=== PATIENT | male | born 1940 | race Caucasian/White ===

== ENCOUNTER 2019-10-16 12:01 | Emergency (ER) | payer MEDICARE, BC ==
[2019-10-16] MEDS ORDERED: Sodium Chloride 0.9% 10 ML Syringe FLUSH PRN ×2 (12:19→12:47)
[2019-10-16] MEDS ORDERED: Sodium Chloride 0.9% 1,000 ML IV ONE (12:19)
--- NOTE | 2019-10-16 12:29 | EDM.PDOC ---
ED HPI GENERAL MEDICAL PROBLEM - General Stated Complaint: DIZZY, VISION ISSUES Time Seen by Provider: 10/16/19 12:12 Source of Information: Reports: Patient, Family History Limitations: Reports: Physical Impairment - History of Present Illness INITIAL COMMENTS - FREE TEXT/NARRATIVE: Cali is a 79 year old male, presents to the ED today with with sudden onset of unsteady gait, trouble dialing phone and unsteady gait that started at 0900 this morning. Patient thought he just wasn't feeling well initially and had issues with ambulation. He was going to go out to eat with family but then decided he should stay home, they left some phones by patient and when he tried to call them he had a hard time with coordination while dialing. Patient denies any visual loss, no dysarthria. Patient denies any headache. Patient denies any chest pain. Patient denies any hx of stroke or heart attack. Patient is not on any blood thinners, he denies any recent trauma, patient did have spinal surgery in April and has been regaining strength in his right arm since that time, however, prior to today, patient has not had any coordination issues. Patient normally ambulates unassisted, now unable to ambulate secondary to unsteadiness. Onset: Today, Sudden Duration: Hour(s): (0900) - Related Data Allergies Allergy/AdvReac Type Severity Reaction Status Date / Time No Known Allergies Allergy Verified 10/16/19 12:29 Home Meds: Home Meds Aspirin 81 mg PO DAILY 02/28/15 [History] Multivitamin [Multi-Vitamin Daily] 1 tab PO DAILY 02/28/15 [History] Pravastatin Sodium [Pravachol] 40 mg PO BEDTIME 02/28/15 [History] amLODIPine [Norvasc] 10 mg PO DAILY 02/28/15 [History] lamoTRIgine [LaMICtal] 200 mg PO BID 02/28/15 [History] Losartan [Cozaar] 100 mg PO DAILY 02/11/18 [History] Magnesium Glycinate [Mag Glycinate] 100 mg PO DAILY 10/16/19 [History] Vit C/E/Zn/Coppr/Lutein/Zeaxan [Preservision Areds 2 Softgel] 1 tab PO BID 10/16/19 [History] Vitamin B Complex [B Complex] 1 tab PO DAILY 10/16/19 [History] Past Medical History HEENT History: Reports: Impaired Vision Cardiovascular History: Reports: High Cholesterol, Hypertension Gastrointestinal History: Reports: None Musculoskeletal History: Reports: Fracture Neurological History: Reports: Seizure, Other (See Below) Other Neuro History: last seizure in 1999 - Infectious Disease History Infectious Disease History: Reports: Chicken Pox - Past Surgical History Head Surgeries/Procedures: Reports: Other (See Below) HEENT Surgical History: Reports: None Cardiovascular Surgical History: Reports: None GI Surgical History: Reports: Colonoscopy, EGD Neurological Surgical History: Reports: None Musculoskeletal Surgical History: Reports: None Dermatological Surgical History: Reports: None Social & Family History - Family History Family Medical History: Noncontributory - Caffeine Use Caffeine Use: Reports: Coffee ED ROS GENERAL - Review of Systems Review Of Systems: Comprehensive ROS is negative, except as noted in HPI. ED EXAM, NEURO - Physical Exam Exam: See Below Exam Limited By: Physical Impairment General Appearance: Alert, Mild Distress Eye Exam: Bilateral Eye: EOMI, PERRL Ears: Normal External Exam Nose: Normal Inspection Throat/Mouth: Normal Inspection, Normal Oropharynx Head Exam: Atraumatic Neck: Normal Inspection, Supple Respiratory/Chest: No Respiratory Distress, Lungs Clear Cardiovascular: Normal Peripheral Pulses, Regular Rate, Rhythm, No Murmur GI/Abdominal: Normal Bowel Sounds, Soft, Non-Tender Neurological: Alert, Abnormal Gait, Ataxia, Abnormal Finger to Nose, Abnormal Sensation, Other (ataxia with ambulation, difficulty with finger to nose, right, decreased sensation right upper and lower) Back Exam: Normal Inspection Extremities: Normal Inspection, No Pedal Edema, Normal Capillary Refill Psychiatric: Anxious Skin Exam: Warm, Dry, Intact EKG INTERPRETATION EKG Date: 10/16/19 Time: 12:15 Rhythm: NSR Rate (Beats/Min): 91 [place]: Normal P-Wave: Present QRS: Normal ST-T: Normal QT: Normal Course - Vital Signs Last Recorded V/S: Last Vital Signs Temp 36.5 C 10/16/19 13:25 Pulse 74 10/16/19 13:25 Resp 16 10/16/19 13:25 BP 143/70 H 10/16/19 13:25 Pulse Ox 97 10/16/19 13:25 Cali is a 79 year old male, hx of HTN, hyperlipidemia, seizures (not for years), presents to the ED today with concerns for CVA. Please refer to HPI and focused exam. Patient declared code stroke. I am concerned about posterior stroke. I assisted patient up from wheelchair prior to getting into ED bed, he has profound ataxia. Patient has poor coordination of finger to nose with right hand. He has had some residual weakness/numbness to right arm from his spinal surgery in April however has not had any issues with regard to coordination and strength. Patient on arrival here along with ataxia has right arm drift and decreased sensation to right upper and lower extremity when compared to left. Patient does not have persistent nystagmus, he dose have bilateral positive impulse test. CT of head and CTA obtained emergently, EKG sinus rhythm with prolonged MT interval. Patient does have hx of craniectomy due to his seizure hx. While patient in CT I called [facility] and spoke with stroke neurologist, Dr. Jara, after discussing patient, patient is in extended window for TPA and given hx there is no contraindications. CT head with no acute bleed. 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 After much discussion of risks/benefits of TPA vs. no treatment and just transfer both patient and his agreeable to TPA administration. NIH of 4. 1340-TPA administered per RN. No change in patient neuro status prior to administration. Patient discharged via air care in stable condition with stable vital signs. - Orders/Labs/Meds Orders: Active Orders 24 hr Category Date Time Status EKG Documentation Completion [RC] ASDIRECTED Care 10/16/19 12:16 Active Peripheral IV Care [RC] . DIRECTED Care 10/16/19 12:19 Active Ang Neck [CT] Stat Exams 10/16/19 12:17 Taken Peripheral IV Insertion Adult [OM.PC] Routine Oth 10/16/19 12:19 Ordered EKG 12 Lead [EK] Stat Ther 10/16/19 12:16 Ordered Labs: Laboratory Tests 10/16/19 10/16/19 10/16/19 Range/Units 12:28 12:28 12:28 WBC 9.5 (4.5-11.0) K/uL RBC 4.11 L (4.30-5.90) M/uL Hgb 13.2 (12.0-15.0) g/dL Hct 40.2 (40.0-54.0) % MCV 98 (80-98) fL MCH 32 H (27-31) pg MCHC 33 (32-36) % Plt Count 363 (150-400) K/uL Neut % (Auto) 80 H (36-66) % Lymph % (Auto) 10 L (24-44) % Marion % (Auto) 9 H (2-6) % Eos % (Auto) 1 L (2-4) % Baso % (Auto) 0 (0-1) % PT (9.5-12.0) sec INR (0.80-1.20) Sodium 138 L (140-148) mmol/L Potassium 4.2 (3.6-5.2) mmol/L Chloride 104 (100-108) mmol/L Carbon Dioxide 25 (21-32) mmol/L Anion Gap 13.2 (5.0-14.0) mmol/L BUN 19 H (7-18) mg/dL Creatinine 1.1 (0.8-1.3) mg/dL Est Cr Clr Drug Dosing 56.22 mL/min Estimated GFR (MDRD) > 60 (>60) Glucose 112 H (74-106) mg/dL Lactic Acid 1.4 (0.4-2.0) mmol/L Calcium 9.2 (8.5-10.1) mg/dL Total Bilirubin 0.5 (0.2-1.0) mg/dL AST 21 (15-37) U/L ALT 28 (12-78) U/L Alkaline Phosphatase 77 (46-116) U/L Troponin I < 0.017 (0.000-0.056) ng/mL C-Reactive Protein (0.0-0.3) mg/dL Total Protein 7.6 (6.4-8.2) g/dL Albumin 3.9 (3.4-5.0) g/dL Globulin 3.7 H (2.3-3.5) g/dL Albumin/Globulin Ratio 1.1 L (1.2-2.2) 10/16/19 10/16/19 Range/Units 12:28 12:28 WBC (4.5-11.0) K/uL RBC (4.30-5.90) M/uL Hgb (12.0-15.0) g/dL Hct (40.0-54.0) % MCV (80-98) fL MCH (27-31) pg MCHC (32-36) % Plt Count (150-400) K/uL Neut % (Auto) (36-66) % Lymph % (Auto) (24-44) % Marion % (Auto) (2-6) % Eos % (Auto) (2-4) % Baso % (Auto) (0-1) % PT 10.0 (9.5-12.0) sec INR 0.92 (0.80-1.20) Sodium (140-148) mmol/L Potassium (3.6-5.2) mmol/L Chloride (100-108) mmol/L Carbon Dioxide (21-32) mmol/L Anion Gap (5.0-14.0) mmol/L BUN (7-18) mg/dL Creatinine (0.8-1.3) mg/dL Est Cr Clr Drug Dosing mL/min Estimated GFR (MDRD) (>60) Glucose (74-106) mg/dL Lactic Acid (0.4-2.0) mmol/L Calcium (8.5-10.1) mg/dL Total Bilirubin (0.2-1.0) mg/dL AST (15-37) U/L ALT (12-78) U/L Alkaline Phosphatase (46-116) U/L Troponin I (0.000-0.056) ng/mL C-Reactive Protein 0.00 (0.0-0.3) mg/dL Total Protein (6.4-8.2) g/dL Albumin (3.4-5.0) g/dL Globulin (2.3-3.5) g/dL Albumin/Globulin Ratio (1.2-2.2) Meds: Medications Discontinued Medications Generic Name Dose Route Start Last Admin Trade Name Freq PRN Reason Stop Dose Admin Alteplase, Recombinant 7.5 mg 10/16/19 14:00 10/16/19 13:29 Activase IVPUSH 10/16/19 14:01 7.5 mg ONETIME ONE Administration Sodium Chloride 1,000 mls @ 999 mls/hr 10/16/19 12:19 10/16/19 12:54 Normal Saline IV 10/16/19 13:19 999 mls/hr .BOLUS ONE Administration Sodium Chloride 70 mls @ 3 mls/sec 10/16/19 12:47 10/16/19 12:49 Normal Saline IV 10/16/19 12:48 3 mls/sec ASDIRECTED ONE Administration Alteplase, Recombinant 68 mg/ 68 mls @ 68 mls/hr 10/16/19 14:00 10/16/19 13:41 Premix IV 10/16/19 14:59 68 mls/hr ONETIME ONE Administration Iopamidol 100 ml 10/16/19 13:00 10/16/19 12:48 Isovue-370 (76%) IV 100 ml . DIRECTED EVELYN Administration Sodium Chloride 10 ml 10/16/19 12:19 10/16/19 12:54 Saline Flush FLUSH 10 ml ASDIRECTED PRN Administration Keep Vein Open Sodium Chloride 10 ml 10/16/19 12:47 10/16/19 12:48 Saline Flush FLUSH 10 ml . DIRECTED PRN Administration [id number] EXAM Departure - Departure Time of Disposition: 14:20 Disposition: DC/Tfer to Acute Hospital 02 Condition: Serious Clinical Impression: Ataxia, Coordination abnormal, Abnormal sensation of upper extremity, Abnormal sensation of lower extremity - Discharge Information Referrals: PCP,None [Primary Care Provider] - Forms: ED Department Discharge Sepsis Event Note (ED) - Focused Exam Vital Signs: Vital Signs Temp Pulse Resp BP Pulse Ox 10/16/19 13:25 36.5 C 74 16 143/70 H 97 10/16/19 12:53 75 18 134/68 96 10/16/19 12:29 36.5 C 95 18 155/78 H 96 - My Orders Last 24 Hours: My Active Orders 10/16/19 12:16 EKG Documentation Completion [RC] ASDIRECTED EKG 12 Lead [EK] Stat 10/16/19 12:17 Ang Neck [CT] Stat 10/16/19 12:19 Peripheral IV Care [RC] . DIRECTED Peripheral IV Insertion Adult [OM.PC] Routine - Assessment/Plan Last 24 Hours: My Active Orders 10/16/19 12:16 EKG Documentation Completion [RC] ASDIRECTED EKG 12 Lead [EK] Stat 10/16/19 12:17 Ang Neck [CT] Stat 10/16/19 12:19 Peripheral IV Care [RC] . DIRECTED Peripheral IV Insertion Adult [OM.PC] Routine
[2019-10-16] MEDS ORDERED: Iopamidol 755 Mg/ML 100 ML Bottle IV SCH (13:00)
--- NOTE | 2019-10-16 13:10 | CRLCT ---
INDICATION: Unsteadiness with right arm drift. Possible CVA. COMPARISON: None available. TECHNIQUE: CT examination of the head was performed with 3 mm thick axial sections without intravenous contrast. Images were obtained from the vertex of the skull through the skull base, and I examined the images with the brain and bone windows. Please note that all CT scans at this facility use dose modulation, iterative reconstruction, and/or weight-based dosing when appropriate to reduce radiation dose to as low as reasonably achievable. FINDINGS: : There is a large area encephalomalacia involving the mid and anterior portion of the left temporal lobe, underlying a large mature left temporal craniotomy. This is associated with moderate ex vacuo dilatation of the left temporal horn and left occipital horn. There is prominent atrophy of the left cerebellar hemisphere, which may be related to the left temporal encephalomalacia change. The brain is elsewhere normal in appearance for the patient`s age on today`s study, with no sign of mass lesion, mass effect, hemorrhage, or edema. The rest of the ventricles and sulci are mildly dilated, representing mild, age-appropriate atrophy. The visualized portions of the orbits are normal in appearance. The visualized portions of the paranasal sinuses and mastoids are clear. The osseous structures are normal in their appearance with no sign of abnormality in the skull base or calvarium. IMPRESSION: No sign of acute injury to the brain. Prominent encephalomalacic change involving the entire left anterior and mid temporal lobe underlying a large mature right temporal craniotomy. Prominent atrophy of the left cerebellar hemisphere, possibly related to the encephalomalacia of the left temporal lobe described above. Mild, age-appropriate atrophy. Please note that all CT scans at this facility use dose modulation, iterative reconstruction, and/or weight-based dosing when appropriate to reduce radiation dose to as low as reasonably achievable. Dictated by Altaf Monson MD @ Oct 16 2019 1:03PM Signed by Dr. Altaf Monson @ Oct 16 2019 1:08PM
--- NOTE | 2019-10-16 13:18 | CRLCT ---
History: Right arm drift. Unsteadiness. Possible CVA. Comparison: Noncontrast CT of the head from today. Normal appearance of the vessels of the [place] despite the large area of encephalomalacia involving the anterior and mid left temporal lobe. Widely patent bilateral anterior, middle, and posterior cerebral arteries. Widely patent anterior communicating artery. 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 Widely patent basilar artery with widely patent dominant left vertebral artery. The right vertebral artery is diminutive and no definite flow is seen in the most superior portion of the left vertebral artery beyond the origin of the left PICA near the junction with the basilar artery. No sign of intracranial aneurysm. Impression: No large vessel occlusions of the intracranial circulation. Anterior circulation unremarkable. Widely patent basilar and dominant left vertebral artery. Diminutive right vertebral artery may be occluded near the junction with the basilar artery. Dictated by Altaf Monson MD @ 10/16/2019 1:17:16 PM Prelim Report By Dr. Altaf Monson @ 10/16/2019 1:17:19 PM ADDENDUM The findings were called and faxed to Dr. Asha Ocasio on 10/16/2019 at 1:19pm. Prelim Report By Dr. Altaf Monson @ 10/16/2019 1:17:19 PM ADDENDUM TECHNIQUE: Helical CT acquisition of the head and neck was performed after intravenous contrast administration with bolus timing. Sagittal and coronal reformats were obtained and interpreted. IMPRESSION: Agree with findings above. No proximal intracranial large vessel occlusion and patent cervical vasculature. Please note that all CT scans at this facility use dose modulation, iterative reconstruction, and/or weight-based dosing when appropriate to reduce radiation dose to as low as reasonably achievable. Dictated by: Tina Doyle MD @ 10/16/2019 13:59:00 (Electronically Signed)
[2019-10-16 13:26] VITALS: BP 143/70; PULSE 74
[2019-10-16] MEDS ORDERED: ALTEPLASE IV ONE (14:00)
--- NOTE | 2019-10-18 11:05 | CRLCT ---
Final Report: History: Right arm drift. Unsteadiness. Possible CVA. Comparison: Noncontrast CT of the head from today. Normal appearance of the vessels of the [place] despite the large area of encephalomalacia involving the anterior and mid left temporal lobe. Widely patent bilateral anterior, middle, and posterior cerebral arteries. Widely patent anterior communicating artery. Widely patent large caliber left posterior communicating artery with associated hypoplasia of the P1 segments of the left P[employer] SE[employer]ING MACHINE OPERATOR, a common variant of normal. Widely patent basilar artery with widely patent dominant left vertebral artery. The right vertebral artery is diminutive and no definite flow is seen in the most superior portion of the left vertebral artery beyond the origin of the left PICA near the junction with the basilar artery. No sign of intracranial aneurysm. Impression: No large vessel occlusions of the intracranial circulation. Anterior circulation unremarkable. Widely patent basilar and dominant left vertebral artery. Diminutive right vertebral artery may be occluded near the junction with the basilar artery. Dictated by Altaf Monson MD @ 10/16/2019 1:17:16 PM Prelim Report By Dr. Altaf Monson @ 10/16/2019 1:17:19 PM ADDENDUM The findings were called and faxed to Dr. Asha Ocasio on 10/16/2019 at 1:19pm. Prelim Report By Dr. Altaf Monson @ 10/16/2019 1:17:19 PM ADDENDUM TECHNIQUE: Helical CT acquisition of the head and neck was performed after intravenous contrast administration with bolus timing. Sagittal and coronal reformats were obtained and interpreted. IMPRESSION: Agree with findings above. No proximal intracranial large vessel occlusion and patent cervical vasculature. Please note that all CT scans at this facility use dose modulation, iterative reconstruction, and/or weight-based dosing when appropriate to reduce radiation dose to as low as reasonably achievable. Dictated by: Tina Doyle MD @ 10/16/2019 13:59:00 Signed by: Tina Doyle MD @10/16/2019 1:59:00 PM (Electronic Signature) [facility]
== END 2019-10-16 14:04 ==
LOC: JP.ED 12:01
DX: R27.0 Ataxia, unspecified (principal); R20.0 Anesthesia of skin; E78.00 Pure hypercholesterolemia, unspecified; I10 Essential (primary) hypertension; R56.9 Unspecified convulsions; Z79.82 Long term (current) use of aspirin; Z79.899 Other long term (current) drug therapy
CPT/HCPCS: 36415; 37195; 70450; 70496; 70498; 80053; 83605; 84484; 85025; 85610; 86140; 93005; 93010; 96360; 99285; J2997; J7030; J7050; Q9967

== ENCOUNTER 2019-11-22 12:00 | Emergency (ER) | payer MEDICARE, BC ==
--- NOTE | 2019-11-22 12:29 | EDM.PDOC ---
ED HPI GENERAL MEDICAL PROBLEM - General Chief Complaint: General Stated Complaint: DIZZINESS Time Seen by Provider: 11/22/19 12:33 Source of Information: Reports: Patient, Significant Other History Limitations: Reports: No Limitations - History of Present Illness INITIAL COMMENTS - FREE TEXT/NARRATIVE: Has previously been diagnosed with ataxia and abnormal coordination. Presents today with dizziness. States he was not dizzy when he woke this morning and fairly suddenly at 11:00 he became dizzy and unable to walk. Denies room spinning. Denies tinnitus. He has chronic tingling in his extremities after having neck surgery at the [facility] this past year. He was told by neurosurgeon if he would have tingling in his extremities. The patient has had a previous episode of acute dizziness such as today. He was not diagnosed with any stroke at that time.. He was not diagnosed with any stroke at that time. He was told by neurosurgeon that he would have tingling in his extremities. Onset Date: 11/22/19 Onset Time: 11:00 Duration: Waxing/Waning Severity: Severe - Related Data Allergies Allergy/AdvReac Type Severity Reaction Status Date / Time No Known Allergies Allergy Verified 10/16/19 12:29 Home Meds: Home Meds Aspirin 81 mg PO DAILY 02/28/15 [History] Multivitamin [Multi-Vitamin Daily] 1 tab PO DAILY 02/28/15 [History] Pravastatin Sodium [Pravachol] 40 mg PO BEDTIME 02/28/15 [History] amLODIPine [Norvasc] 10 mg PO DAILY 02/28/15 [History] lamoTRIgine [LaMICtal] 200 mg PO BID 02/28/15 [History] Losartan [Cozaar] 100 mg PO DAILY 02/11/18 [History] Magnesium Glycinate [Mag Glycinate] 100 mg PO DAILY 10/16/19 [History] Vit C/E/Zn/Coppr/Lutein/Zeaxan [Preservision Areds 2 Softgel] 1 tab PO BID 10/16/19 [History] Vitamin B Complex [B Complex] 1 tab PO DAILY 10/16/19 [History] Past Medical History HEENT History: Reports: Impaired Vision Cardiovascular History: Reports: High Cholesterol, Hypertension Gastrointestinal History: Reports: None Musculoskeletal History: Reports: Fracture Neurological History: Reports: Seizure, Other (See Below) Other Neuro History: last seizure in 1999 - Infectious Disease History Infectious Disease History: Reports: Chicken Pox, Measles, Mumps - Past Surgical History Head Surgeries/Procedures: Reports: Other (See Below) HEENT Surgical History: Reports: None Cardiovascular Surgical History: Reports: None GI Surgical History: Reports: Colonoscopy, EGD Neurological Surgical History: Reports: None Musculoskeletal Surgical History: Reports: None Dermatological Surgical History: Reports: None Social & Family History - Family History Family Medical History: Noncontributory - Tobacco Use Smoking Status *Q: Never Smoker - Caffeine Use Caffeine Use: Reports: Coffee, Soda - Recreational Drug Use Recreational Drug Use: No ED ROS GENERAL - Review of Systems Review Of Systems: See Below Constitutional: Denies: Fever, Weakness HEENT: Reports: No Symptoms, Vertigo Respiratory: Reports: No Symptoms Cardiovascular: Reports: No Symptoms Endocrine: Reports: No Symptoms GI/Abdominal: Reports: No Symptoms Musculoskeletal: Reports: Neck Pain Skin: Reports: No Symptoms Neurological: Reports: Paresthesia (occurs daily since neck surgery), Difficulty Walking. Denies: Headache, Seizure, Syncope, Trouble Speaking Psychiatric: Reports: No Symptoms ED EXAM, GENERAL - Physical Exam Exam: See Below Exam Limited By: No Limitations General Appearance: Alert, WD/WN Eye Exam: Bilateral Eye: EOMI, PERRL Ears: Normal External Exam Nose: Normal Inspection Throat/Mouth: Normal Inspection Head: Atraumatic Neck: Limited Range of Motion, Other (well healed scar posterior midline) Respiratory/Chest: No Respiratory Distress Cardiovascular: Normal Peripheral Pulses GI/Abdominal: Normal Bowel Sounds Extremities: Normal Inspection Neurological: Alert, Oriented, Normal Cognition, Normal Reflexes Psychiatric: Normal Affect, Normal Mood Skin Exam: Warm, Dry EKG INTERPRETATION EKG Date: 11/22/19 Time: 13:15 Rhythm: NSR Rate (Beats/Min): 62 [place]: Normal P-Wave: Present ST-T: Normal Course - Vital Signs Text/Narrative:: I reviewed in detail with both the patient and his the results of the CT scan of the C-spine which basically shows Surgical changes from laminectomy and degenerative changes. CT scan of the head shows no acute injury. There is a stable soft tissue nodularity and stable prominence of CSF. There is prominent cerebellar atrophy and possibly an arachnoid cyst. Nothing acute that would require emergent intervention. Last Recorded V/S: Last Vital Signs Temp 35.9 C L 11/22/19 12:12 Pulse 59 L 11/22/19 15:38 Resp 16 11/22/19 15:38 BP 131/72 11/22/19 15:38 Pulse Ox 98 11/22/19 15:38 - Orders/Labs/Meds Orders: Active Orders 24 hr Category Date Time Status EKG Documentation Completion [RC] ASDIRECTED Care 11/22/19 12:59 Active EKG 12 Lead [EK] Urgent Ther 11/22/19 12:59 Ordered Labs: Laboratory Tests 11/22/19 11/22/19 11/22/19 Range/Units 13:10 13:10 13:10 WBC 8.0 (4.5-11.0) K/uL RBC 3.91 L (4.30-5.90) M/uL Hgb 12.3 (12.0-15.0) g/dL Hct 38.7 L (40.0-54.0) % MCV 99 H (80-98) fL MCH 32 H (27-31) pg MCHC 32 (32-36) % Plt Count 329 (150-400) K/uL PT 10.1 (9.5-12.0) sec INR 0.93 (0.80-1.20) Sodium 141 (140-148) mmol/L Potassium 4.2 (3.6-5.2) mmol/L Chloride 107 (100-108) mmol/L Carbon Dioxide 28 (21-32) mmol/L Anion Gap 6.0 (5.0-14.0) mmol/L BUN 18 (7-18) mg/dL Creatinine 1.2 (0.8-1.3) mg/dL Est Cr Clr Drug Dosing 48.29 mL/min Estimated GFR (MDRD) 58 L (>60) Glucose 93 (74-106) mg/dL Calcium 8.8 (8.5-10.1) mg/dL Total Bilirubin 0.3 (0.2-1.0) mg/dL AST 15 (15-37) U/L ALT 19 (12-78) U/L Alkaline Phosphatase 72 (46-116) U/L Total Protein 6.7 (6.4-8.2) g/dL Albumin 3.5 (3.4-5.0) g/dL Globulin 3.2 (2.3-3.5) g/dL Albumin/Globulin Ratio 1.1 L (1.2-2.2) Departure - Departure Time of Disposition: 16:04 Disposition: Home, Self-Care 01 Condition: Fair Clinical Impression: Generally unsteady, Vertigo due to brain injury - Discharge Information Instructions: Dizziness, [id number] Referrals: Harpal Waters MD [Primary Care Provider] - Forms: ED Department Discharge Additional Instructions: Trial of Meclizine. 5 day prescription given. follow up with food and nutrition teacher. Sepsis Event Note (ED) - Evaluation Sepsis Screening Result: No Definite Risk - Focused Exam Vital Signs: Vital Signs Temp Pulse Resp BP Pulse Ox 11/22/19 15:38 59 L 16 131/72 98 11/22/19 12:12 35.9 C L 88 16 139/68 98 - My Orders Last 24 Hours: My Active Orders 11/22/19 12:59 EKG Documentation Completion [RC] ASDIRECTED EKG 12 Lead [EK] Urgent - Assessment/Plan Last 24 Hours: My Active Orders 11/22/19 12:59 EKG Documentation Completion [RC] ASDIRECTED EKG 12 Lead [EK] Urgent
--- NOTE | 2019-11-22 14:37 | CRLCT ---
INDICATION: Dizziness COMPARISON: 10/16/2019 TECHNIQUE: CT examination of the head was performed with 3 mm thick axial sections without intravenous contrast. Images were obtained from the vertex of the skull through the skull base, and I examined the images with the brain and bone windows. Please note that all CT scans at this facility use dose modulation, iterative reconstruction, and/or weight-based dosing when appropriate to reduce radiation dose to as low as reasonably achievable. FINDINGS: Again seen is the mature left anterior temporoparietal craniotomy with stable prominence encephalomalacia of the anterior and mid left temporal lobe. The brain is normal in appearance for the patient`s age on today`s study, with no sign of mass lesion, mass effect, hemorrhage, or edema. Stable mild ex vacuo dilatation of the left lateral ventricle. There is stable prominence of CSF space dorsal to the left cerebellar hemisphere which I now think is more likely an arachnoid cyst but could be prominent left cerebellar atrophy related to the previous injury to the left temporal lobe. Again seen is mild dilatation of the ventricles and sulci elsewhere There are subtle soft tissue nodules lining the lateral ventricles that I did not appreciate on the previous study, more prominent in the posterior bodies of the lateral ventricles. 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 Recommend correlation with history of seizure. The visualized portions of the orbits are normal in appearance. The visualized paranasal sinuses and mastoids are clear. The rest of the osseous structures are normal in their appearance with no sign of additional abnormality in the skull base or calvarium. IMPRESSION: No sign of acute injury to the brain with stable appearance. Again seen is prominence encephalomalacia of the left anterior and mid temporal lobe underlying a mature left temporoparietal craniotomy flap. Stable prominence of CSF dorsal to the left cerebral hemisphere, prominent cerebellar atrophy versus arachnoid cyst. I now favor an arachnoid cyst. 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 Recommend correlation with history of seizures. Please note that all CT scans at this facility use dose modulation, iterative reconstruction, and/or weight-based dosing when appropriate to reduce radiation dose to as low as reasonably achievable. Dictated by Altaf Monson MD @ Nov 22 2019 2:27PM Signed by Dr. Altaf Monson @ Nov 22 2019 2:36PM
--- NOTE | 2019-11-22 14:52 | CRLCT ---
INDICATION: Dizziness COMPARISON: None available TECHNIQUE: CT examination of the cervical spine is performed without contrast using spiral technique. 2 mm thick axial, sagittal and coronal reconstructions were made. Please note that all CT scans at this facility use dose modulation, iterative reconstruction, and/or weight-based dosing when appropriate to reduce radiation dose to as low as reasonably achievable. FINDINGS: : There is grade 1 anterior subluxation of C5 on C6 which is probably degenerative, associated with mild bilateral facet arthropathy. The C5-6 disc space is mildly narrowed from disc degenerative disease. No sign of additional subluxation. There is absence of the posterior elements at C3 and C4 consistent with broad central laminectomy. There is moderate diffuse disc bulging at C3-4 with posterior osteophytic ridging. There is prominent left and moderate right foraminal stenosis from uncovertebral joint hypertrophy. There is no sign of fracture of the cervical vertebral bodies or posterior elements. Vertebral body height is normal. There is no sign of prevertebral soft tissue swelling. There is moderate C6-7 disc degenerative disease with mild diffuse disc bulging and posterior osteophytic ridging. There is moderate left foraminal stenosis from uncovertebral joint hypertrophy. 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 The airway structures are normal in appearance. The visualized skull base is normal in appearance. The visualized posterior brain is normal in appearance for the patient`s age. There is mild pleural scarring in the posterior apices of the lungs, left greater than right. The apices are otherwise clear. IMPRESSION: No sign of acute osseous injury to the cervical spine. Grade 1 anterior subluxation of C5 on C6, probably degenerative. S/p broad central laminectomy at C3 and C4 with moderate broad disc bulge and posterior osteophytic ridging without definite spinal stenosis. 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 Moderate C6-7 disc degenerative disease. Please note that all CT scans at this facility use dose modulation, iterative reconstruction, and/or weight-based dosing when appropriate to reduce radiation dose to as low as reasonably achievable. Dictated by Altaf Monson MD @ Nov 22 2019 2:44PM Signed by Dr. Altaf Monson @ Nov 22 2019 2:50PM
[2019-11-22 15:39] VITALS: BP 131/72; PULSE 59
== END 2019-11-22 16:26 | disposition home or self-care (01) ==
LOC: JP.ED 12:00
DX: R27.0 Ataxia, unspecified (principal); I10 Essential (primary) hypertension; E78.00 Pure hypercholesterolemia, unspecified; Z79.82 Long term (current) use of aspirin; Z79.899 Other long term (current) drug therapy
CPT/HCPCS: 36415; 70450; 72125; 80053; 85027; 85610; 93005; 99284-25

== ENCOUNTER 2021-10-26 14:35 | Emergency (ER) | payer MEDICARE, BC ==
[2021-10-26 15:07] VITALS: BP 131/75; PULSE 81
[2021-10-26] MEDS ORDERED: Sodium Chloride 0.9% 500 ML IV SCH (15:45)
== END 2021-10-26 16:45 | disposition home or self-care (01) ==
LOC: JP.ED 14:35
DX: R55 Syncope and collapse (principal); R42 Dizziness and giddiness; E78.00 Pure hypercholesterolemia, unspecified; I10 Essential (primary) hypertension; Z79.82 Long term (current) use of aspirin; Z79.899 Other long term (current) drug therapy
CPT/HCPCS: 36415; 80048; 85025; 96360; 99284; J7030

== ENCOUNTER 2022-04-26 10:14 | Emergency (ER) | payer MEDICARE, BC ==
[2022-04-26] MEDS ORDERED: Sodium Chloride 0.9% 500 ML IV ONE (10:47)
[2022-04-26] MEDS ORDERED: Sodium Chloride 0.9% 10 ML Syringe FLUSH PRN (10:47)
[2022-04-26 11:20] LABS: ESTIMATED GFR 76 mL/min (>60); TROPONIN I HIGH SENSITIVITY 6.7 pg/mL (<=60.3)
[2022-04-26] MEDS ORDERED: Sodium Chloride 0.9% 75 ML IV ONE (12:17)
[2022-04-26] MEDS ORDERED: Sodium Chloride 0.9% 10 ML Syringe FLUSH ONE (12:17)
[2022-04-26] MEDS ORDERED: Iopamidol 755 Mg/ML 100 ML Bottle IV ONE (12:17)
[2022-04-26 13:18] VITALS: BP 131/54; PULSE 61
== END 2022-04-26 14:02 | disposition home or self-care (01) ==
LOC: JP.ED 10:14
DX: R42 Dizziness and giddiness (principal); E78.00 Pure hypercholesterolemia, unspecified; I10 Essential (primary) hypertension; Z79.82 Long term (current) use of aspirin; Z79.899 Other long term (current) drug therapy
CPT/HCPCS: 36415; 70450; 70496; 70498; 76377; 80053; 84484; 85025; 85610; 85730; 93005; 96360; 99284; J3490; J7040; Q9967; 93010; 99282

== ENCOUNTER 2022-04-27 12:05 | Emergency (ER) | payer MEDICARE, BC ==
[2022-04-27 13:35] LABS: CORONAVIRUS COVID-19 NAA NEGATIVE (NEGATIVE)
[2022-04-27 15:36] VITALS: BP 157/58; PULSE 63
== END 2022-04-27 15:51 | disposition home or self-care (01) ==
LOC: JP.ED 12:05
DX: G40.909 Epilepsy, unspecified, not intractable, without status epilepticus (principal); J32.9 Chronic sinusitis, unspecified; E78.00 Pure hypercholesterolemia, unspecified; I10 Essential (primary) hypertension; R25.2 Cramp and spasm; E87.8 Other disorders of electrolyte and fluid balance, not elsewhere classified; R26.81 Unsteadiness on feet; Z79.82 Long term (current) use of aspirin; Z79.899 Other long term (current) drug therapy; Z20.822 Contact with and (suspected) exposure to COVID-19
CPT/HCPCS: 0241U; 36415; 70551; 80175; 99285

== ENCOUNTER 2022-11-19 07:19 | Day surgery (SDC) | payer MEDICARE, BC ==
[2022-11-19] MEDS ORDERED: Sodium Chloride 0.9% 10 ML Syringe FLUSH PRN (08:30)
[2022-11-19 09:07] VITALS: BP 128/58; PULSE 66
== END 2022-11-19 09:14 | disposition home or self-care (01) ==
LOC: JP.SDS 07:19
PROVIDERS: ATTEND Ophthalmology
DX: H26.9 Unspecified cataract (principal); I10 Essential (primary) hypertension; E78.00 Pure hypercholesterolemia, unspecified; Z79.899 Other long term (current) drug therapy
CPT/HCPCS: 66984; J3490

== ENCOUNTER 2022-12-03 08:48 | Day surgery (SDC) | payer MEDICARE, BC ==
[~2022-12-03 08:48] MED LIST: Sodium Chloride 0.9% 10 ML Syringe FLUSH PRN
[2022-12-03] MEDS ORDERED: Sodium Chloride 0.9% 10 ML Syringe FLUSH PRN (09:15)
[2022-12-03 10:29] VITALS: BP 141/70; PULSE 67
== END 2022-12-03 10:20 | disposition home or self-care (01) ==
LOC: JP.SDS 08:48
PROVIDERS: ATTEND Ophthalmology
DX: H26.9 Unspecified cataract (principal); I10 Essential (primary) hypertension; E78.5 Hyperlipidemia, unspecified; Z86.69 Personal history of other diseases of the nervous system and sense organs
CPT/HCPCS: 66984; J3490; V2632

== ENCOUNTER 2023-02-09 09:38 | Emergency (ER) | payer MEDICARE, BC ==
[2023-02-09 10:01] LABS: BASOPHILS ABSOLUTE AUTO 0.05 K/uL (0.00-0.10); BASOPHILS PERCENT AUTO 0.7 % (0.1-1.3); EOSINOPHILS ABSOLUTE AUTO 0.22 K/uL (0.00-0.40); HEMATOCRIT 39.7 % (38.4-49.7); HEMOGLOBIN 13.4 g/dL (12.9-16.9); IMMATURE GRAN ABSOLUTE AUTO 0.02 K/uL (0.00-0.23); IMMATURE GRAN PERCENT AUTO 0.3 % (0.0-0.7); LYMPHOCYTES ABSOLUTE AUTO 1.19 K/uL (0.8-3.3); MEAN CORPUSCULAR HEMOGLOBIN 33.1 pg (31.6-35.5); MEAN CORPUSCULAR HGB CONC 33.8 g/dL (31.6-35.5); MONOCYTES ABSOLUTE AUTO 0.66 K/uL (0.20-0.90); MONOCYTES PERCENT AUTO 8.9 % (3.3-12.6); NEUTROPHILS ABSOLUTE AUTO 5.31 K/uL (1.0-7.6); NEUTROPHILS PERCENT AUTO 71.1 % (40.0-78.1); PLATELET COUNT,PLT 310 K/uL (130-375); RED BLOOD CELL COUNT 4.05 M/uL (4.14-5.76); WHITE BLOOD CELL COUNT,WBC 7.5 K/uL (3.2-11.0)
[2023-02-09 10:16] LABS: ANION GAP 12.6 mmol/L (5.0-14.0); CALCIUM 8.6 mg/dL (8.5-10.1); CREATININE 1.2 mg/dL (0.8-1.3); EST CRCL DRUG DOSING (CG) 45.92 mL/min
[2023-02-09 10:27] VITALS: BP 142/50; PULSE 75
[2023-02-09 10:33] LABS: CORONAVIRUS COVID-19 NAA NEGATIVE (NEGATIVE)
[2023-02-09 11:14] LABS: INFLUENZA A NAA NEGATIVE (NEGATIVE); INFLUENZA B NAA NEGATIVE (NEGATIVE); RESPIRATORY SYNCYTIAL VIR NAA NEGATIVE (NEGATIVE)
== END 2023-02-09 12:11 | disposition home or self-care (01) ==
LOC: JP.ED 09:38
DX: S00.03XA Contusion of scalp, initial encounter (principal); I10 Essential (primary) hypertension; R53.1 Weakness; E78.00 Pure hypercholesterolemia, unspecified; Z79.82 Long term (current) use of aspirin; W19.XXXA Unspecified fall, initial encounter
CPT/HCPCS: 0241U; 36415; 70450; 71045; 80048; 84145; 85025; 99285

== ENCOUNTER 2025-02-06 00:03 | Emergency (ER) | payer MEDICARE, BC ==
[2025-02-06 00:06] VITALS: BP 145/79; PULSE 78
[2025-02-06 00:18] LABS: BASOPHILS ABSOLUTE AUTO 0.05 K/uL (0.00-0.10); BASOPHILS PERCENT AUTO 0.7 % (0.1-1.3); EOSINOPHILS ABSOLUTE AUTO 0.24 K/uL (0.00-0.40); EOSINOPHILS PERCENT AUTO 3.3 % (0.0-5.4); IMMATURE GRAN ABSOLUTE AUTO 0.02 K/uL (0.00-0.23); IMMATURE GRAN PERCENT AUTO 0.3 % (0.0-0.7); LYMPHOCYTES ABSOLUTE AUTO 2.19 K/uL (0.8-3.3); LYMPHOCYTES PERCENT AUTO 30.2 % (11.4-47.7); MONOCYTES ABSOLUTE AUTO 0.88 K/uL (0.20-0.90); MONOCYTES PERCENT AUTO 12.1 % (3.3-12.6); NEUTROPHILS ABSOLUTE AUTO 3.87 K/uL (1.0-7.6); NEUTROPHILS PERCENT AUTO 53.4 % (40.0-78.1); PLATELET COUNT,PLT 350 K/uL (130-375); RED BLOOD CELL COUNT 3.99 M/uL (4.14-5.76); WHITE BLOOD CELL COUNT,WBC 7.3 K/uL (3.2-11.0)
== END 2025-02-06 01:55 | disposition home or self-care (01) ==
LOC: JP.ED 00:03
DX: S06.0X0A Concussion without loss of consciousness, initial encounter (principal); I10 Essential (primary) hypertension; E78.00 Pure hypercholesterolemia, unspecified; Z79.82 Long term (current) use of aspirin; Z79.899 Other long term (current) drug therapy; W01.198A Fall on same level from slipping, tripping and stumbling with subsequent striking against other object, initial encounter
CPT/HCPCS: 12002; 36415; 70450; 72125; 76377; 85025; 99284